=== PATIENT | female | born 1980 | race Caucasian/White ===

== ENCOUNTER 2016-11-14 21:35 | Emergency (ER) | payer OTHER ==
[2016-11-14] MEDS ORDERED: Sodium Chloride 0.9% 1,000 ML IV ONE (22:14)
[2016-11-14 22:36] LABS: BASO % 0.3 % (0.0-2.0); EOS # 0.1 K/uL (0.0-0.7); EOS % 1.4 % (0.0-4.0); HEMOGLOBIN 11.3 g/dL (11.0-16.0); LYMPH # 1.9 K/uL (1.0-4.3); LYMPH % 21.2 % (20.0-40.0); MEAN CELL VOLUME 84.7 fL (81.0-99.0); MEAN CORPUSCULAR HEMOGLOBIN 27.2 pg (27.0-31.0); MEAN CORPUSCULAR HGB CONC 32.1 g/dL (33.0-37.0); MEAN PLATELET VOLUME 8.5 fL (7.2-11.7); MONO # 0.7 K/uL (0.0-0.8); MONO % 7.4 % (0.0-10.0); NEUT # 6.3 K/uL (1.8-7.0); NEUT % 69.7 % (50.0-75.0); RBC 4.15 Mil/uL (3.80-5.20); RED CELL DISTRIBUTION WIDTH 12.1 % (11.5-14.5)
[2016-11-14 22:50] LABS: ALBUMIN 3.8 g/dL (3.5-5.0)
[2016-11-14 22:53] LABS: ALT/SGPT 23 U/L (9-52); AST/SGOT 21 U/L (14-36); BLOOD UREA NITROGEN 16 mg/dL (7-17); CALCIUM 8.8 mg/dl (8.6-10.4); GFR AFRICAN-AMERICAN > 60; GFR NON-AFRICAN AMERICAN > 60; LIPASE 274 U/L (23-300)
[2016-11-14 23:11] LABS: HCG,QUALITATIVE URINE NEGATIVE (NEGATIVE)
[2016-11-14 23:22] LABS: SQUAMOUS EPITHIAL 28 /hpf (0-5); URINE BACTERIA FEW (<OCC); URINE BILIRUBIN NEGATIVE (NEGATIVE); URINE BLOOD 3+ (NEGATIVE); URINE CLARITY Turbid (Clear); URINE COLOR Red (YELLOW); URINE GLUCOSE (UA) 1+ mg/dL (Normal); URINE LEUKOCYTE ESTERASE TRACE Leu/uL (Negative); URINE NITRATE NEGATIVE (NEGATIVE); URINE PROTEIN 2+ mg/dL (NEGATIVE); URINE UROBILINOGEN NORMAL mg/dL (0.2-1.0)
--- NOTE | 2016-11-14 23:34 | C.PDOC ---
Time Seen by Provider: 11/14/16 22:04 Chief Complaint (Nursing): Abdominal Pain History Per: Patient Onset/Duration Of Symptoms: Hrs (around noon today) Current Symptoms Are (Timing): Still Present Severity: Moderate Location Of Pain/Discomfort: RUQ, Epigastric Quality Of Discomfort: "Pain" Associated Symptoms: Nausea, Vomiting Alleviating Factors: None Recent travel outside of the [place]: Yes Additional History Per: Prior Records Last Menstral Period: Now Past Medical History Reviewed: Historical Data, Nursing Documentation, Vital Signs Vital Signs: Last Vital Signs Temp 98.2 F 11/14/16 21:40 Pulse 82 11/14/16 21:40 Resp 20 11/14/16 21:40 BP 115/79 11/14/16 21:40 Pulse Ox 100 11/14/16 23:35 - Medical History PMH: No Chronic Diseases Surgical History: No Surg Hx Family History: States: Unknown Family Hx - Social History Hx Alcohol Use: No Hx Substance Use: No Review Of Systems Except As Marked, All Systems Reviewed And Found Negative. Constitutional: Negative for: Fever, Weakness Cardiovascular: Negative for: Chest Pain Respiratory: Negative for: Shortness of Breath Gastrointestinal: Positive for: Nausea, Vomiting, Abdominal Pain. Negative for : Diarrhea Genitourinary: Positive for: Vaginal Bleeding (Pt states she has her menstrual period now). Negative for: Dysuria Musculoskeletal: Negative for: Neck Pain, Back Pain Skin: Negative for: Rash Neurological: Negative for: Weakness, Numbness, Seizures, Altered Mental Status Physical Exam - Physical Exam Appears: Non-toxic, No Acute Distress Skin: Normal Color, Warm, Dry, No Rash Head: Atraumatic, Normacephalic Eye(s): bilateral: Normal Inspection, PERRL, EOMI Neck: Normal ROM, Supple Cardiovascular: Rhythm Regular Respiratory: Normal Breath Sounds, No Accessory Muscle Use Gastrointestinal/Abdominal: Soft, Tenderness (right side), No Guarding, No Rebound Back: No CVA Tenderness Extremity: Normal ROM Neurological/Psych: Oriented x3, Normal Motor, Normal Sensation ED Course And Treatment - Laboratory Results Result Diagrams: 11/14/16 22:31 11/14/16 22:31 Lab Interpretation: No Acute Changes Urine POC: Negative O2 Sat by Pulse Oximetry: 100 Pulse Ox Interpretation: Normal Progress Note: Pt feels much better and wants to go home. No abdominal pain or tenderness. Reassessment Condition: Improved Progress - Interventions Interventions:: Observation, Intravenous fluid - Medications Administered Intravenous: Antiemetic, H-2 lauri, NSAID - Data Reviewed Data Reviewed: Lab, Diagnostic imaging, Old records - Patient Status Patient status: Completely improved - Continuity of Care Discussed patient case with:: Patient, Family-HIPPA compliant, ED Nurse - Patient Plan Patient Plan: Discharge, F/U with PCP Disposition Counseled Patient/Family Regarding: Studies Performed, Diagnosis, Need For Followup, Rx Given - Disposition Referrals: [facility] [employer] [Outside] Disposition: HOME/ ROUTINE Disposition Time: 23:52 Condition: IMPROVED Additional Instructions: Follow up with your doctor. Follow up with a General Surgeon for your gallstones. Return to the ER if you develop fever, worsening of symptoms or if you have any other concerns. Prescriptions: Famotidine [Pepcid] 20 mg PO BID #30 tab Metoclopramide [Reglan] 1 tab PO TID PRN #15 tab PRN Reason: Nausea/Vomiting Instructions: Acute Abdominal Pain (ED), Gallstones (ED) - Clinical Impression Clinical Impression: Abdominal pain, Nausea & vomiting, Gallstones
[2016-11-15 00:11] VITALS: BP 99/61; PULSE 80; RESP 16; TEMP 97.9; O2SAT 99
--- NOTE | 2016-11-15 09:44 | US ---
HISTORY: RUQ pain COMPARISON: None. TECHNIQUE: Grayscale imaging was performed. FINDINGS: LIVER: Measures 13.8 cm in length. Normal echogenicity of the liver parenchyma. No mass. No intrahepatic bile duct dilatation. GALLBLADDER: The gallbladder is contracted and there are multiple gallstones. No evidence of wall thickening, pericholecystic fluid or positive sonographic Dominguez's sign COMMON BILE DUCT: Measures 5.7 mm. No stones. No dilatation. PANCREAS: Unremarkable as visualized. No mass. No ductal dilatation. RIGHT KIDNEY: Measures 9.9 cm in length. Normal echogenicity. No calculus, mass, or hydronephrosis. AORTA: No aneurysmal dilatation. IVC: Unremarkable. OTHER FINDINGS: None . IMPRESSION: Cholelithiasis. A preliminary report was provided by [employer].
== END 2016-11-15 00:15 | disposition home or self-care (01) ==
LOC: C.ER 21:35
DX: K80.20 Calculus of gallbladder without cholecystitis without obstruction (principal)
CPT/HCPCS: 76705; 80053; 81001; 83690; 84703; 85025; 96361; 96374; 96375; 99284; J1885; J2765; J7040